=== PATIENT | female | born 1980 | race Caucasian/White ===

== ENCOUNTER 2020-11-25 10:52 | Inpatient (IN) | payer SELFPAY ==
[~2020-11-25] VITALS: Ht 154.9 cm; Wt 93.6 kg
[2020-11-25 11:53] LABS: BASOPHILS 0.1 % (0-2); EOSINOPHILS 0 % (0-7); HEMATOCRIT 38.4 % (36.0-48.0); HEMOGLOBIN 12.6 g/dL (12-16); LYMPHOCYTES 3.5 % (15-50); MCH 29.5 pg (26.0-34.0); MCHC 32.7 g/dL (31.0-37.0); MCV 90.1 fL (80.0-100.0); MEAN PLATELET VOLUME 6.9 fL (7.4-10.4); MONOCYTES 2.5 % (2-11); NEUTROPHILS 93.9 % (40-80); PLATELET COUNT 340 10x3/uL (130-400); RBC 4.26 10x6/uL (4.00-5.40); RDW 13.8 % (11.5-14.5); WBC 25.9 10x3/uL (4.8-10.8)
[2020-11-25 11:54] LABS: CALC OSMOLALITY 270 mosm/kg (275-300); CALCIUM 8.8 mg/dL (8.5-10.1); CARBON DIOXIDE 25.8 mmol/L (21.0-32.0); CHLORIDE - SERUM 101 mmol/L (98-107); CREATININE - SERUM 0.8 mg/dL (0.6-1.3); GLUCOSE 111 mg/dL (74-106); POTASSIUM - SERUM 3.4 mmol/L (3.5-5.1); SODIUM 136 mmol/L (136-145); UREA NITROGEN 8 mg/dL (7-18); eGFR NON AFRICAN AMERICAN 84 mL/min (90-120)
[2020-11-25 12:00] LABS: ALBUMIN 3.3 g/dL (3.4-5.0); ALKALINE PHOSPHATASE 93 U/L (30-120); ALT (SGPT) 27 U/L (10-68); BILIRUBIN - TOTAL 0.86 mg/dL (0.2-1.3); PROTEIN - SERUM 7.6 g/dL (6.4-8.2)
--- NOTE | 2020-11-25 12:43 | NUR ---
STATES PAIN IS MANAGEABLE POST PAIN MEDS BUT STILL PRESENT- RATED 7 OUT OF 10
[2020-11-25 12:57] LABS: BACTERIA MOD HPF (<MOD); BILIRUBIN NEGATIVE (NEGATIVE); KETONE 2+ mg/dL (< 1+); NITRITE POSITIVE (NEGATIVE); PH 6.5 (5.0-8.0); SQUAMOUS EPITHELIAL 7 HPF (0-4); UROBILINOGEN NORMAL mg/dL (< 2); WHITE CELLS - URINE 86 HPF (0-4)
--- NOTE | 2020-11-25 14:01 | NUR ---
dILAUDID GIVEN IVP ORDERED PRE PELVIC ULTRASOUND.
--- NOTE | 2020-11-25 19:16 | NUR ---
REPORT RECEIVED FROM LETTY RUIZ AND LETTY LOZANO. PT IS AAO X3 AND NAD NOTED. RESPIRATIONS APPEAR EVEN AND NON LABORED. CALL LIGHT WITHIN REACH.
[2020-11-25 19:17] VITALS: BP 91/54
[2020-11-25 21:00] VITALS: BP 101/56
[2020-11-25 22:00] VITALS: BP 96/59
[2020-11-25 23:00] VITALS: BP 100/54
[2020-11-26] VITALS (9 sets, daily range): BP systolic 91–112; BP diastolic 47–62; Ht 154.9 cm; Wt 93.6 kg
--- NOTE | 2020-11-26 04:00 | NUR ---
AMBULATED TO AND FROM RESTROOM WITH STEADY GAIT.
--- NOTE | 2020-11-26 04:05 | NUR ---
EXPLAINED TO PT THAT MORPHINE CAN NOT BE GIVEN AT THIS TIME D/T VITAL SIGNS. WILL REASSESS AT A LATER TIME. PT ACKNOWLEDGED, OTHER PRN PAIN MEDICATION GIVEN. SEE EMAR.
[2020-11-26 07:47] LABS: BASOPHILS 0.4 % (0-2); EOSINOPHILS 0.1 % (0-7); HEMATOCRIT 33.1 % (36.0-48.0); HEMOGLOBIN 10.9 g/dL (12-16); LYMPHOCYTES 7.6 % (15-50); MCH 29.9 pg (26.0-34.0); MCHC 33.1 g/dL (31.0-37.0); MCV 90.4 fL (80.0-100.0); MEAN PLATELET VOLUME 6.9 fL (7.4-10.4); MONOCYTES 4.3 % (2-11); NEUTROPHILS 87.6 % (40-80); PLATELET COUNT 316 10x3/uL (130-400); RBC 3.65 10x6/uL (4.00-5.40); RDW 13.7 % (11.5-14.5)
[2020-11-26 08:06] LABS: ALBUMIN 2.6 g/dL (3.4-5.0); ALKALINE PHOSPHATASE 82 U/L (30-120); ALT (SGPT) 22 U/L (10-68); BILIRUBIN - TOTAL 0.71 mg/dL (0.2-1.3); CALCIUM 7.8 mg/dL (8.5-10.1); CARBON DIOXIDE 26.2 mmol/L (21.0-32.0); CHLORIDE - SERUM 102 mmol/L (98-107); CREATININE - SERUM 0.6 mg/dL (0.6-1.3); GLUCOSE 87 mg/dL (74-106); MAGNESIUM - SERUM 1.9 mg/dL (1.8-2.4); PHOSPHOROUS 2.7 mg/dL (2.5-4.9); POTASSIUM - SERUM 3.6 mmol/L (3.5-5.1); PROTEIN - SERUM 6.1 g/dL (6.4-8.2); SODIUM 139 mmol/L (136-145); eGFR NON AFRICAN AMERICAN > 90 mL/min (90-120)
[2020-11-26 08:07] LABS: CALC OSMOLALITY 276 mosm/kg (275-300); UREA NITROGEN 13 mg/dL (7-18)
[2020-11-26 08:20] LABS: C-REACTIVE PROTEIN 35.8 mg/dL (0.0-0.9)
--- NOTE | 2020-11-26 09:07 | NUR ---
TORADOL 15MG GIVEN IVP- NS BOLUS STARTED- 1/2NS INCREASED TO 150/HR ORDERED. WILL CON'T TO MONITOR.
--- NOTE | 2020-11-26 10:07 | NUR ---
REPORT CALLED TO Ayaka IN [facility]- PT WILL BE TRANSFERRED TO ROOM 1273.
--- NOTE | 2020-11-26 10:35 | NUR ---
PT RECEIVED VIA W/C FROM ER FOR ADMIT STATUS AT 1025. AAOx3, C/O 7/10 PAIN IN ABD, WILL REVIEW PRN PAIN MED ORDERS. PT TO BR TO GOWN, TO BED, SUPINE WITH HOB APPROX 45 DEGREES. VSS, SEE FLOWSHEET AT 1035. CONT PULSE OX ON ORDERED, SCD'S ON LE BILAT AND ON PUMP PER ORDER. 1/2NS INFUSING ORDERED TO RIGHT AC PIV, 22G, C/D/I. NO SIGNS OF PHLEBITIS OR INFILTRATION. BILAT POPLITEAL AND PEDAL PULSES 2+ BILAT. PT C/O LEFT FOOT PAIN ON TOP OF FOOT SINCE LAST NIGHT, STATES SHE MAY HAVE SLEPT WRONG. NEG HOMANS SIGN BILAT, CAP REFILL <3SEC. PT REASSURED PULSES ARE WNL, WILL CONT TO MONITOR AND NOTIFY IF FOOT PAIN WORSENS. POC DISCUSSED. PT DENIES ANY OTHER NEEDS, OTHER THAN PAIN MANAGEMENT. SRUx2, CL IN REACH.
[2020-11-26] MEDS ORDERED: TRANEXAMIC ACI650 MG PO (10:46)
--- NOTE | 2020-11-26 10:56 | NUR ---
ADMISSION ASSESSMENT AND HISTORY COMPLETED. PT REQUESTING PAIN MEDICATION FOR PAIN, RATES PAIN 10/10 IN ABD, MOSTLY LEFT SIDED, SHARP AND CONSTANT. WILL ADMIN ORDERED PRN. PT ALSO REQUESTING SNACK AND ICE WATER. INSTRUCTED DEVELOPMENT ANALYST LIGHT USE, TV AND BED CONTROLS. UNDERSTANDING VERBALIZED.
--- NOTE | 2020-11-26 11:11 | NUR ---
PT PROVIDED WITH SNACK AND ICE WATER PER REQUEST. ICE PACK TO ABD FOR PT C/O BURNING PAIN. PT ADMIN MORPHINE ORDERED PRN FOR PAIN RATED 10/10. PT DENIES FURTHER NEEDS AT THIS TIME. LIGHTS IN ROOM DIMMED FOR REST PER REQUEST, PT WATCHING TELEVISION. SRUx2, CL IN REACH. PT INSTRUCTED TO CALL FOR ASSIST WHEN SHE NEEDS UP TO BR. UNDERSTANDING VERBALIZED.
--- NOTE | 2020-11-26 12:15 | NUR ---
THIS RN TO ROOM FOR PAIN REASSESSMENT. PT STATES PAIN IS BETTER, RATES PAIN 7/10 AT THIS TIME. NEXT PAIN MED TIMES REVIEWED WITH PT PER ORDERED SCHEDULED, UNDERSTANDING VERBALIZED. ICE PACK REMAINS ON ABD. PT EATING CHEETOS AND WATCHING TELEVISION, DENIES FURTHER NEEDS. SRUx2, CL IN REACH.
--- NOTE | 2020-11-26 13:20 | NUR ---
PT UP TO BR, NO NEED FOR ASSIST, DENIES DIZZINESS. VOIDS APPROX 350ML DARK YELLOW URINE, SLIGHTLY CLOUDY EMPTIED FROM URINE HAT.
--- NOTE | 2020-11-26 13:28 | NUR ---
DR GOEL TO PT ROOM FOR ROUNDING, INSTRUCTS PT TO F/U WITH PCP DR SHIN AFTER D/C TO HOME. UNDERSTANDING VERBALIZED, PT DENIES QUESTIONS.
--- NOTE | 2020-11-26 13:30 | NUR ---
PIV RESITED WITH 22 GAUGE CATHELON TO RIGHT HAND. 1/2 NS INFUSING AT 150 ML/HR. SITE CLEAR. PT KISHAN WELL.
--- NOTE | 2020-11-26 14:52 | NUR ---
PT PULSE OX ALARMING 91%, THIS RN TO ROOM, PT NOTED TO BE RESTING WITH EYES CLOSED IN BED WITH HOB APPROX 45 DEGREES. PT ALERTS TO VOICE. PLACED ON 2L OXYGEN VIA NC. PT STATES SHE IS HURTING, RATES PAIN 8/10. MORPHINE ADMIN ORDERED PRN, SEE EMAR FOR DOC. PT PROVIDED WITH JELLO PER REQUEST. DENIES FURTHER NEEDS. SRUx2, CL IN REACH. VSS, SEE FLOWSHEET DOC AT 2084.
--- NOTE | 2020-11-26 15:12 | NUR ---
DR GOEL CONTACTED TO VERIFY IF GC/CHLAMYDIA ORDER MAY BE CHANGED TO URINE SPECIMEN SO IT MAY BE DONE IN HOUSE, RATHER THAN VAGINAL SWAB SEND OUT WITH LONGER RESULT TIME. ORDER RECEIVED MAY CHANGE ORDER SPECIMEN TO URINE SAMPLE.
--- NOTE | 2020-11-26 16:15 | NUR ---
THIS RN TO ROOM FOR PAIN REASSESSMENT. PT RATES PAIN 6/10, STATES IT IS BETTER. PT ALSO STATES SHE NO LONGER HAS PAIN ON TOP OF HER LEFT FOOT, STATES SHE THINKS SHE MUST HAVE JUST SLEPT WRONG ON IT. PT STATES SHE NEEDS TO GET UP TO BR TO VOID. PT INSTRUCTED ON NEED FOR CLEAN CATCH UA FOR GC/CHLAMYDIA TEST. PT PROVIDES CC UA, VOIDS APRROX 150ML DARK YELLOW URINE, SLIGHTLY CLOUDY. PT BACK TO BED. NEW ICE PACK PROVIDED TO ABD PER REQUEST. PT DENIES FURTHER NEEDS AT THIS TIME. SRUx2, CL IN REACH.
[2020-11-26 16:50] LABS: BACTERIA FEW HPF (<MOD); BILIRUBIN NEGATIVE (NEGATIVE); KETONE 2+ mg/dL (< 1+); NITRITE NEGATIVE (NEGATIVE); SQUAMOUS EPITHELIAL 7 HPF (0-4); UROBILINOGEN 6 mg/dL (< 2); WHITE CELLS - URINE 17 HPF (0-4)
--- NOTE | 2020-11-26 17:40 | NUR ---
DR FELIX TO ROOM FOR ROUNDING. DISCUSSING POC WITH PT AND FAMILY MEMBER. ORDER RECEIVED FOR SIMETHICONE 80MG PO ACHS, AND TO INCREASE TORADOL DOSE TO 30MG IV Q6HPRN PAIN.
--- NOTE | 2020-11-26 17:44 | NUR ---
FLAGYL AND TORADOL ADMIN ORDERED, SEE EMAR FOR DOC.
--- NOTE | 2020-11-26 18:51 | NUR ---
PAIN REASSSED AND MEDS GIVEN. SEE EMAR FOR MEDICATION ADMINISTRAION BY THIS RN.
--- NOTE | 2020-11-26 18:54 | NUR ---
SHIFT ASSESSMENT COMPLETED, SEE FLOWSHEET.
--- NOTE | 2020-11-26 18:58 | NUR ---
BEDSIDE REPORT TO RAE RN
--- NOTE | 2020-11-26 21:31 | NUR ---
PATIENT ASSISTED UP TO BATHROOM, VOIDED 200ML DARK NORTH URINE WITHOUT INCIDENT. BACK TO BED AND SCD'S AND OXYGEN MASK REPLACED. NEW BAG OF IV FLUIDS SCANNED AND HUNG. ALL CARE PROVIDED AT THIS TIME BY LETTY FUNG.
--- NOTE | 2020-11-26 22:20 | NUR ---
PATIENT LYING IN BED WITH NO DISTRESS NOTED. SIMETHICONE 80MG PO ADMINISTERED AT THIS TIME, PT AND MEDICATION SCANNED INTO [employer], SEE EMAR.
--- NOTE | 2020-11-27 01:45 | NUR ---
FLAGYL 500MG IVPB ADMINISTERED AT THIS TIME VIA ALARIS PUMP PER MD ORDERS. PATIENT AND MEDICATION SCANNED IN [facility], SEE EMAR.
--- NOTE | 2020-11-27 03:34 | NUR ---
PATIENT CALLED OUT FOR HELP TO THE BATHROOM. IN TO ASSIST PATIENT AND SHE STATES THAT SHE CANT SIT UP AND NEEDS TO HAVE ME HELP HER OUT OF BED. SCD'S REMOVED, AND PT ASSISTED TO SIT UP AND GET OUT OF BED. NO DISTRESS NOTED, NO FACIAL GRIMACING BUT PT STATES THAT HER PAIN IS A 10.
--- NOTE | 2020-11-27 04:05 | NUR ---
PATIENT VOIDED 300ML NORTH URINE AT THIS TIME. PATIENT ENCOURAGED TO DRINK FLUIDS. BACK TO BED AND SCD'S PLACED.
--- NOTE | 2020-11-27 04:13 | NUR ---
OXYGEN @2L/MIN VIA NON REBREATHER MASK.
--- NOTE | 2020-11-27 06:02 | NUR ---
NEW BAG OF IV FLUIDS HUNG AT THIS TIME,PROTONIX 40MG PO ADMINISTERED. [facility] SEE [facility]. PT DENIES NEEDS.
[2020-11-27 06:46] LABS: BASOPHILS 0.1 % (0-2); EOSINOPHILS 0.2 % (0-7); HEMATOCRIT 30.9 % (36.0-48.0); HEMOGLOBIN 10.2 g/dL (12-16); LYMPHOCYTES 8.1 % (15-50); MCHC 33.1 g/dL (31.0-37.0); MCV 90.6 fL (80.0-100.0); MEAN PLATELET VOLUME 7.3 fL (7.4-10.4); MONOCYTES 6.4 % (2-11); NEUTROPHILS 85.2 % (40-80); PLATELET COUNT 270 10x3/uL (130-400); RBC 3.41 10x6/uL (4.00-5.40); RDW 13.6 % (11.5-14.5)
--- NOTE | 2020-11-27 07:01 | NUR ---
BEDSIDE REPORT COMPLETED WITH Julien ROOT RN.
[2020-11-27 07:02] LABS: CALC OSMOLALITY 271 mosm/kg (275-300); CALCIUM 7.1 mg/dL (8.5-10.1); CARBON DIOXIDE 24.1 mmol/L (21.0-32.0); CHLORIDE - SERUM 103 mmol/L (98-107); CREATININE - SERUM 0.7 mg/dL (0.6-1.3); GLUCOSE 90 mg/dL (74-106); PHOSPHOROUS 2.4 mg/dL (2.5-4.9); POTASSIUM - SERUM 3.5 mmol/L (3.5-5.1); SODIUM 137 mmol/L (136-145); eGFR NON AFRICAN AMERICAN > 90 mL/min (90-120)
[2020-11-27 07:03] LABS: UREA NITROGEN 7 mg/dL (7-18)
[2020-11-27 07:11] VITALS: BP 109/59
--- NOTE | 2020-11-27 07:15 | NUR ---
AM ASSESSMENT COMPLETED SEEN ON FLOWSHEET. VSS, NC REMOVED AND O2 SAT 95-97%, PT STATES UNDERSTANDING MAY BE REPLACED IF SEE DECREASE WHEN SLEEPING. IV TO RIGHT HAND PATENT WITH NO SIGNS OF INFILTRATION AND PT DENIES PAIN/TENDERNESS AT SITE. DENIES PAIN OR BURNING WITH VOIDS BUT DOES COMPLAIN OF INCREASED ABD TENDERNESS AND PER PT "I FEEL BLOATED" ENCOURAGED HER TO CONTINUE TO DRINK FLUIDS AND AMBULATE OUTSIDE OF ROOM. HEAD OF BED AT 45DEGREE, SCDS BILAT AND CONNECTED TO PUMP. LARGE ICE WATER PROVIDED. SIDE RAILS UP X 2 WITH CALL LIGHT AND PHONE IN REACH.
--- NOTE | 2020-11-27 09:34 | NUR ---
pain med given for c/o abd pain that she rates at 8/10. also provided with small cup ice with luis cola per request. up to void per self with no c/o dizziness or nausea, voided 300ml clear urine, praised for increased fluid intake and encouraged to continue. lights turned down, side rails up x 2 with call light in reach.
--- NOTE | 2020-11-27 10:02 | NUR ---
PT RESTING WITHOUT SIGNS OF DISTRESS, CALL LIGHT IN REACH.
[2020-11-27 11:32] LABS: AMYLASE - SERUM 9 U/L (25-115)
[2020-11-27 11:34] LABS: LIPASE 25 U/L (73-393)
--- NOTE | 2020-11-27 12:18 | NUR ---
VERIFIED WITH PT THAT SHE UNDERSTOOD NOTHING TO EAT OR DRINK UNTIL AFTER GB ULTRASOUND.
--- NOTE | 2020-11-27 14:20 | NUR ---
SULMA FROM US AT BEDSIDE FOR GALLBLADDER SCAN ORDERED.
--- NOTE | 2020-11-27 15:01 | NUR ---
PT UP TO BATHROOM PER SELF WITH NO ASSISTANCE NEEDED, SHE DENIES NAUSEA AND/OR DIZZINESS. BACK TO BED PER SELF
--- NOTE | 2020-11-27 15:20 | NUR ---
LAB DRAWN BY Marcelo ROJAS RN. PT TOLERATES WELL. SHE RATES ABD PAIN AT 4/10 AT THIS TIME. LIGHTS OUT PER REQUEST, CALL LIGHT AND PHONE IN REACH.
--- NOTE | 2020-11-27 15:35 | NUR ---
LABS TAKEN UP TO LAB
[2020-11-27 17:03] VITALS: BP 114/60
--- NOTE | 2020-11-27 17:18 | NUR ---
LAB CALLED ABOUT AMYLASE AND LIPASE RESULTS. REORDERED PER LAB
[2020-11-27 18:03] LABS: AMYLASE - SERUM 12 U/L (25-115); LIPASE 28 U/L (73-393)
--- NOTE | 2020-11-27 18:30 | NUR ---
PT UP TO BATHROOM, PROVIDED WITH MESH BRIEFS REQUESTED. ROCEPHIN IVPB INFUSING, PT TO CALL WHEN THIS HAS FINISHED SO THAT SHE CAN TAKE A SHOWER.
[2020-11-27 19:00] VITALS: BP 108/58
--- NOTE | 2020-11-27 19:00 | NUR ---
PT SITTING UP IN BED, A,A,OX4. VSS. PIV INFUSING NS AT 125 ML/HR IN RT HAND. PIV SITE C/D/I. PT COMPLAINS OF PRESSURE PAIN IN DIAPHRAM. SEE FULL ASSESSMENT PER FLOWSHEET. CALL LIGHT WITHIN REACH.
--- NOTE | 2020-11-27 19:30 | NUR ---
TOWELS AND GOWN PROVIDED. PIV SALINE LOCKED AND WRAPPED IN GLOVE. PT UP TO SHOWER.
--- NOTE | 2020-11-27 19:45 | NUR ---
PT CALLS OUT ON LIGHT BACK IN BED FROM SHOWER. NS INFUSING 125 ML/HR IN RT HAND. SCDS ON. PT DENIES NEEDS AT THIS TIME. CALL LIGHT WITHIN REACH.
--- NOTE | 2020-11-27 20:52 | NUR ---
GAS-X,MIRALAX,LAXATIVE ADMINISTERED PER EMAR. PT REQUESTS DILAUDID PAIN MEDICATION. PT C/O PAIN IN UPPER ABDOMEN. PT STATES AFTER SHOWER THAT SHE NOTICED BRUISING ON UPPER ABDOMEN. LIGHT GREENISH YELLOW FAINT LINE NOTED ON UPPER ABDOMEN AND SMALL [place] LIGHT FAINT GREENISH YELLOW BRUISE NOTED ON ABDOMEN. PT DENIES ANY FALLS IN PAST WEEKS. EDUCATION DONE ON FRESH NEW BRUISING WOULD BE DIFFERENT COLORING FOR NEW BRUISES.
--- NOTE | 2020-11-27 21:06 | NUR ---
DILAUDID ADMINISTERED PER EMAR. PT COMPLAINS OF BURNING AT IV SITE. IV FLUSHED WITH SALINE FLUSH AND RETAPED. PT STATES PAIN AT IV SITE WENT AWAY.
--- NOTE | 2020-11-27 22:22 | NUR ---
PT RESTING WITH EYES CLOSED, EASILY AROUSED TO VERBAL STIMULATION. PT STATES PAIN IS NOW 5/10. DENIES OTHER NEEDS AT THIS TIME.
--- NOTE | 2020-11-28 01:18 | NUR ---
TORADOL ADMINSITERED IV FOR PAIN, FLAGYL ADMINSITERED SEE EMAR. PT DENIES OTHER NEEDS AT THIS TIME.
--- NOTE | 2020-11-28 03:10 | NUR ---
NEW BAG 0.5 NS RAYMOND INFUSING AT 150 ML/HR. PT DENIES NEEDS AT THIS TIME.
--- NOTE | 2020-11-28 05:35 | NUR ---
PT RESTING WITH EYES CLOSED, BREATHING UNLABORED. EASILY AROUSED TO VERBAL STIMULATION. TRAY REMOVED. WILL CONTINUE TO MONITOR.
--- NOTE | 2020-11-28 06:03 | NUR ---
PROTONIX ADMINISTERED PER EMAR. PT UP TO BATHROOM AND REPORTS BOWEL MOVEMENT. WARM WASHCLOTHS PROVIDED PER PT REQUEST. EDUCATION DONE ON GETTING UP OUT OF BED AND PERFORMING ADLS ON OWN.
--- NOTE | 2020-11-28 07:07 | NUR ---
BEDSIDE REPORT COMPLETED OUTSIDE OF ROOM DUE TO PT RESTING WITH EYES CLOSE. NO DISTRESS, LEFT UNDISTURBED. CALL LIGHT IN REACH.
[2020-11-28 07:13] LABS: BASOPHILS 0.2 % (0-2); EOSINOPHILS 0.3 % (0-7); HEMATOCRIT 30.7 % (36.0-48.0); HEMOGLOBIN 10.3 g/dL (12-16); LYMPHOCYTES 9.9 % (15-50); MCHC 33.6 g/dL (31.0-37.0); MCV 89.5 fL (80.0-100.0); MEAN PLATELET VOLUME 7.5 fL (7.4-10.4); NEUTROPHILS 81.6 % (40-80); PLATELET COUNT 324 10x3/uL (130-400); RBC 3.43 10x6/uL (4.00-5.40); RDW 13.6 % (11.5-14.5); WBC 11.3 10x3/uL (4.8-10.8)
[2020-11-28 07:20] LABS: CALC OSMOLALITY 273 mosm/kg (275-300); CALCIUM 7.9 mg/dL (8.5-10.1); CARBON DIOXIDE 24.6 mmol/L (21.0-32.0); CHLORIDE - SERUM 105 mmol/L (98-107); CREATININE - SERUM 0.7 mg/dL (0.6-1.3); GLUCOSE 91 mg/dL (74-106); MAGNESIUM - SERUM 2.1 mg/dL (1.8-2.4); PHOSPHOROUS 2.7 mg/dL (2.5-4.9); SODIUM 138 mmol/L (136-145); UREA NITROGEN 7 mg/dL (7-18); eGFR NON AFRICAN AMERICAN > 90 mL/min (90-120)
--- NOTE | 2020-11-28 09:30 | NUR ---
PT SITTING UP ON SIDE OF BED EATING BREAKFAST. RATES PAIN AT 8/10, TORDAL GIVEN IVP SCANNED TO EMAR. SHE REFUSES MIRALAX AND SEN[place]OT STATING THAT SHE HAD 2 BMS YESTERDAY AND ALREADY ONE THIS MORNING. QUESTIONS WHEN DR GOEL WILL BE HERE BECAUSE SHE IS READY TO BE DISCHARGED HOME. DENIES NEEDS AT THIS TIME.
[2020-11-28] MEDS ORDERED: HYDROCODON-ACE1 EAC7 PO (11:31)
--- NOTE | 2020-11-28 11:45 | NUR ---
SPOKE WITH MEDICAL IMAGING IN REGARDS TO PIPIDA SCAN, PER TECH MED NEEDED TO BE GIVEN WILL NOT BE AVAILABLE UNTIL TUESDAY AND SHE HAS OK IT WITH DR GOEL TO SCHEDULE THIS OUTPATIENT IF PATIENT IS AGREEABLE. MS CHOPRA UNDERSTANDS AND IS OK WITH COMING BACK THRU OUTPT SERVICES TO HAVE SCAN DONE. SCHEDULED FOR TuesdayNovember AT 1300.
[2020-11-28] MEDS ORDERED: CIPRO250 MG PO (12:30)
[2020-11-28] MEDS ORDERED: MIRALAX17 GM PO (12:30)
[2020-11-28] MEDS ORDERED: Mylicon / Gas-X Che PO (12:31)
[2020-11-28] MEDS ORDERED: Senokot-S Tablet PO (12:31)
--- NOTE | 2020-11-28 13:29 | NUR ---
IV DISCONTINUED AND REMOVED WITH CATH INTACT. PT STATES THAT A FRIEND WILL BE COMING TO PICK HER UP AND WILL CALL WHEN SHE ARRIVES.
--- NOTE | 2020-11-28 14:45 | NUR ---
VERBAL AND WRITTEN D/C INSTRUCTIONS GONE OVER, PT PROVIDED WITH WRITTEN SCRIPT FOR NORCO 5/325MG AND UNDERSTANDS TO SENIOR ENVIRONMENTAL CONSULTANT OTHER SCRIPTS AT HER PHARMACY. DENIES QUESTIONS OR CONCERNS. TAKEN OUT BY WHEELCHAIR, HOME WITH FAMILY MEMBER BY PRIVATE CAR.
--- NOTE | 2020-11-30 18:50 | MORECARE ---
CASE MANAGEMENT DISCHARGE SUMMARY PATIENT: GENNA CHOPRA UNIT: [id number] ADM DATE: 11/25/20 AGE: 40 : 80 SEX: F ROOM/BED: [facility] AUTHOR: INGE,DOC PHYSICIAN: REFERRING PHYSICIAN: JESSICA HAN MD DATE OF SERVICE: 11/30/20 Case Management Discharge Planning Summary DCP REVIEW SUMMARY ANTICIPATED D/C DATE: EXPECTED LOS : CASE STATUS: DCP Complete INITIAL REVIEW: 11/25/2020 INITIAL REVIEWER: Padmini Amaya FINAL DISCHARGE DISPOSITION: : FINAL REVIEWER: FINAL REVIEW DATE: DCP [employer] QUESTION: ANSWER : PATIENT: GENNA CHOPRA ENCOUNTER: [id number] MEDICAL RECORD#: [id number] ADMISSION DATE: 11/25/2020 DISCHARGE DATE: 11/28/2020 ATTENDING MD: : AGE: 40 MARITAL STATUS: S DC PLAN ID: [id number] FACILITY: [facility] PRINTED ON: 11/30/20 18:50 CT All edits/amendments must be made on the electronic document DICTATION DATE: 11/30/201848 MACHINE BOBBIN WINDER: CARSON 11/30/201848 RPT#: [id number] DC DATE:11/28/20 STATUS: DIS IN [facility] [address] [place] [address] END OF REPORT
== END 2020-11-28 14:45 | disposition home or self-care (01) | DRG 690 ==
LOC: D.ER 10:52 → D.EDHOLD 22:14 → D.LD 11-26 09:33
PROVIDERS: Emergency Medicine; Family Medicine; ADMIT Family Medicine; ATTEND Family Medicine
DX: N39.0 Urinary tract infection, site not specified (principal); E87.6 Hypokalemia; N83.202 Unspecified ovarian cyst, left side; F17.200 Nicotine dependence, unspecified, uncomplicated; D25.9 Leiomyoma of uterus, unspecified

== ENCOUNTER → 2020-12-02 12:58 | Outpatient (CLI) | payer OTHER ==
[2020-11-26 10:56] VITALS: BMI 39.0
[~2020-12-02 12:58] MED LIST: CIPRO250 MG PO; HYDROCODON-ACE1 EAC7 PO; MIRALAX17 GM PO; Mylicon / Gas-X Che PO; Senokot-S Tablet PO; TRANEXAMIC ACI650 MG PO
== END | disposition home or self-care (01) ==
LOC: D.NM 12:00
PROVIDERS: ATTEND Emergency Medicine
DX: K82.9 Disease of gallbladder, unspecified (principal)